=== PATIENT | male | born 1980 | race Caucasian/White ===

== ENCOUNTER 2020-08-12 10:24 | Emergency (ER) | payer MEDICAID, SELFPAY ==
[~2020-08-12] VITALS: Ht 182.9 cm; Wt 181.4 kg
[2020-08-12 10:27] VITALS: Ht 182.9 cm; Wt 181.4 kg
[2020-08-12 14:57] VITALS: BP 133/77
== END 2020-08-12 14:57 | disposition home or self-care (01) ==
LOC: ED 10:24
DX: U07.1 COVID-19 (principal); Z87.442 Personal history of urinary calculi
CPT/HCPCS: U0003